=== PATIENT | female | born 1980 | race Caucasian/White ===

== ENCOUNTER 2017-01-03 15:26 | Emergency (ER) | payer SELFPAY ==
[~2017-01-03] VITALS: Ht 160 cm; Wt 113.4 kg
[2017-01-03 15:49] VITALS: BP 142/81
== END 2017-01-03 16:08 | disposition home or self-care (01) ==
LOC: ER 15:27
DX: L03.211 Cellulitis of face (principal); K08.89 Other specified disorders of teeth and supporting structures; J45.909 Unspecified asthma, uncomplicated; Z88.8 Allergy status to other drugs, medicaments and biological substances
CPT/HCPCS: A4606; Z7610